=== PATIENT | male | born 1990 | race Caucasian/White ===

== ENCOUNTER 2019-05-15 10:02 | Emergency (ER) | payer OTHER ==
[~2019-05-15] VITALS: Ht 180.3 cm; Wt 98.9 kg
[2019-05-15 10:45] LABS: HEMOGLOBIN 15.7 gm/dL (14.0-18.0); MCH 32.4 pg (26.0-34.0); MCHC 35.7 g/dL (28.0-37.0); MPV 7.9 fl. (7.2-11.1); RBC 4.84 mil/uL (4.50-6.00); RDW-CV 13.4 % (10.5-14.5); WBC 12.7 thou/uL (4.0-11.0)
[2019-05-15 11:06] VITALS: BP 140/96
[2019-05-15 11:19] LABS: CALCIUM 9.4 mg/dL (8.5-10.1); CREATININE 1.3 mg/dL (0.6-1.3); POTASSIUM 3.6 mmol/L (3.5-5.1)
[2019-05-15 11:23] LABS: ALBUMIN 4.5 g/dL (3.4-5.0); TOTAL BILIRUBIN 0.6 mg/dL (<0.1-1.0); TOTAL PROTEIN 8.1 g/dL (6.4-8.2)
--- NOTE | 2019-05-16 10:26 | EKG ---
[place] [address] ELECTROCARDIOGRAM REPORT Name: ETHAN OCONNOR Room: [facility]#: [id number] Admission: 05/15/19 Attend Phys: Discharge: 05/15/19 Date of : 89 Date of Service: 05/15/19 1048 Report #: [id number] THIS REPORT FOR: //name// [facility] ED Test Date: 2019-05-15 Test Time: 10:48:33 Pat Name: ETHAN OCONNOR Department: Room: Gender: Stress Analyst: [facility] : 1990 Requested By: Amadou Castillo Order Number: [id number] MD: Mickey Bowles Measurements Intervals [place] Rate: 91 P: 47 UT: 158 QRS: 43 QRSD: 100 T: 24 QT: 371 QTc: 457 Interpretive Statements Sinus rhythm No previous ECG available for comparison Electronically Signed On 05-16-2019 10:25:17 CDT by Mickey Bowles [email or web address] <ELECTRONICALLY SIGNED> By: Mickey Bowles MD, [facility] 05/16/19 1025 1048 1048 Mickey Bowles MD, FACC /EPI
== END 2019-05-15 11:09 | disposition home or self-care (01) ==
LOC: M.ERS 10:02
PROVIDERS: Emergency Medicine Emergency Medical Services
DX: R07.89 Other chest pain (principal); R07.81 Pleurodynia; F17.210 Nicotine dependence, cigarettes, uncomplicated; V49.49XA Driver injured in collision with other motor vehicles in traffic accident, initial encounter; Y93.89 Activity, other specified; Y92.89 Other specified places as the place of occurrence of the external cause; Y99.8 Other external cause status